=== PATIENT | female | born 1950 | race African-American/Black ===

== ENCOUNTER 2016-08-28 13:15 | Emergency (ER) | payer MEDICARE ==
[~2016-08-28] VITALS: Ht 170.2 cm; Wt 93.0 kg
[2016-08-28 13:50] VITALS: BP 132/81
[2016-08-28] MEDS ORDERED: TETRACAINE 0.5% OPHTH SOLUTION 4ML BOTTLE. OS ONE (14:00)
[2016-08-28] MEDS ORDERED: FLUORESCEIN OPHTH TEST STRIP. OS ONE (14:00)
[2016-08-28] MEDS ORDERED: ERYT1OIN6 OP (14:34)
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
== END 2016-08-28 14:39 | disposition home or self-care (01) ==
LOC: ER 13:15
DX: H16.132 Photokeratitis, left eye (principal); K21.9 Gastro-esophageal reflux disease without esophagitis
CPT/HCPCS: 99283